=== PATIENT | female | born 1970 | race Caucasian/White ===

== ENCOUNTER 2019-08-23 11:02 | Day surgery (SDC) | payer MEDICAID ==
[2019-08-19 11:24] LABS: CLARITY,URINE CLEAR (Clear); COLOR,URINE YELLOW (Yellow); GLUCOSE, URINE NEGATIVE (Neg); KETONES,URINE NEGATIVE (Neg); LEUKOCYTE ESTERASE ,URINE NEGATIVE (Neg); NITRITES, URINE NEGATIVE (Neg); OCCULT BLOOD,URINE TRACE-INTACT (Neg); PROTEIN,URINE NEGATIVE (Neg); UROBILINOGEN,URINE 0.2 E.U/dL (0.2-1.0)
[2019-08-19 11:25] LABS: BASOPHILS # (AUTO) 0.1 X10'3 (0-0.2); BASOPHILS % (AUTO) 0.6 % (0-1); EOSINOPHILS # (AUTO) 0.4 X10'3 (0-0.9); EOSINOPHILS % (AUTO) 3.6 % (0-6); LYMPHOCYTES # (AUTO) 3.6 X10'3 (1.1-4.8); LYMPHOCYTES % (AUTO) 30.9 % (21-51); MEAN CORPUSCULAR HEMOGLOBIN 31.6 PG (27.0-31.0); MEAN CORPUSCULAR HGB CONC 34.6 g/dL (33.0-36.5); MEAN CORPUSCULAR VOLUME 91.4 FL (78-98); MEAN PLATELET VOLUME 10.9 FL (7.4-10.4); MONOCYTES # (AUTO) 0.7 X10'3 (0-0.9); MONOCYTES % (AUTO) 6.2 % (2-12); NEUTROPHILS # (AUTO) 6.8 X10'3 (1.8-7.7); NEUTROPHILS % (AUTO) 58.7 % (42-75); PRE OP HEMATOCRIT 46.2 % (35.0-45.0); PRE OP PLATELET COUNT 225 X10'3 (140-440); RED BLOOD COUNT 5.06 X10'6 (4.20-5.60); RED CELL DISTRIBUTION WIDTH 12.6 % (11.5-14.5)
[2019-08-19 11:27] LABS: UA COLLECTION TYPE NON-SPECIFIED
[2019-08-19 11:33] LABS: BACTERIA,URINE NONE SEEN /HPF (Neg); RBC,URINE 0-2 /HPF (0-2); SQUAMOUS EPITHELIAL CELL,UR FEW /LPF (FEW); WBC,URINE NONE SEEN /HPF (0-4)
[2019-08-19 11:34] LABS: MUCUS STRANDS NONE SEEN /LPF (Neg)
[2019-08-19 11:42] LABS: ALKALINE PHOSPHATASE 111 IU/L (46-116); BLOOD UREA NITROGEN 12 MG/DL (7-18); BUN/CREATININE RATIO 15.6 (6.6-38.0); CALCIUM 10.1 MG/DL (8.5-10.1); CHLORIDE 103 MMOL/L (99-107); CREATININE 0.77 MG/DL (0.40-0.90); PRE OP ALT 30 U/L (30-65); PRE OP ANION GAP 10 (8-16); PRE OP AST 18 U/L (10-37); PRE OP BILIRUB, TOTAL 0.3 MG/DL (0.0-1.0); PRE OP GLUCOSE 108 MG/DL (70-104); PRE OP POTASSIUM 3.7 MMOL/L (3.4-5.1); PRE OP SODIUM 143 MMOL/L (135-145); TOTAL CARBON DIOXIDE 30.3 MMOL/L (24-32); TOTAL PROTEIN 8.1 G/DL (6.4-8.2); eGFR 80 ML/MIN
[2019-08-19 12:34] LABS: LARGE PLATELETS FEW; PLATELET ESTIMATE NORMAL
[~2019-08-23] VITALS: Ht 154.9 cm; Wt 72.6 kg
[2019-08-23] VITALS (7 sets, daily range): BP systolic 118–151; BP diastolic 73–87
[~2019-08-23 11:02] MED LIST: ASPI-611 PO; CHOL200052 PO; DOCUMENT DATE & TIME OF BETA-BLOCKER PO ONE; HYDR25TA4 PO; LISI-604 PO; MAGN500C16 PO; METO-395 PO; NITR0.4T48 SL; SIMV40TA PO; cefazolin/dext.iso 2gm/100ml 100 ML IV ONE; clindamycin-Cleocin 900mg/D5W 50 ML IV ONE; famotidine 10mg tablet PO ONE; ringers solution, lacted 1,000 ML IV SCH
--- NOTE | 2019-08-23 16:28 | NUR ---
CONFIRMED ABX ORDERED WITH DR. SCOTT, PATIENT TO RECEIVE CLINDAMYCIN
[2019-08-23] MEDS ORDERED: sevoflurane 250ml liquid IH ONE (19:24)
[2019-08-23] MEDS ORDERED: fentaNYL/PF 50MCG/1 ML 2ML syringe ONE (19:26)
[2019-08-23] MEDS ORDERED: midazolam 2 mg/2 ml injection ONE (19:26)
[2019-08-23] MEDS ORDERED: propofol inj 20 ML IV ONE (19:28)
[2019-08-23] MEDS ORDERED: BUPIVAcaine/PF 2.5 mg/ml (0.25%) 30ml vial ONE (19:39)
[2019-08-23] MEDS ORDERED: BUPIVACAINE liposomal/PF 13.3 MG/ML vial IM ONE (19:39)
[2019-08-23] MEDS ORDERED: ringers solution, lacted 1,000 ML IV SCH (19:49)
[2019-08-23] MEDS ORDERED: ondansetron/PF 4mg/2ml inj IV PRN (19:50)
[2019-08-23] MEDS ORDERED: proCHLORperazine 10 MG/2 ml inj IV PRN (19:50)
[2019-08-23] MEDS ORDERED: morphine 4 MG/ML inj SYRINge IV PRN ×2 (19:50)
[2019-08-23] MEDS ORDERED: meperidine/PF 25mg/ml syringe IV PRN ×3 (19:50)
--- NOTE | 2019-08-23 20:25 | NUR ---
Received from OR via , accompanied by Anesthesiologist DR RODRIGUEZ and report given by Anesthesiolgist. PT IS AWAKE, REQUIRES ORENTING, SKIN WARM AND PINK, MOVING EXT X 4, NO C/O PAIN, VSS, PIV LEFT HAND 20G LR 100ML/HR.
--- NOTE | 2019-08-23 21:02 | NUR ---
PT UP TO THE RESTROOM TO VOID. STEADY GAIT.
--- NOTE | 2019-08-23 21:10 | NUR ---
PT HAS MET DISCHARGE CRITERIA, VSS, UP TO AMB INDEP'LY, VOIDED, NO C/O PAIN, DISCHARGE INSTRUCTIONS REVIEWED WITH PT AND , PIV REMOVED.
== END 2019-08-23 21:15 | disposition home or self-care (01) ==
LOC: PAS 11:02 → EDSEX 13:00 → PAS 21:15
PROVIDERS: ATTEND Surgery
DX: K64.2 Third degree hemorrhoids (principal); K64.4 Residual hemorrhoidal skin tags; I10 Essential (primary) hypertension; I25.10 Atherosclerotic heart disease of native coronary artery without angina pectoris; F17.210 Nicotine dependence, cigarettes, uncomplicated
CPT/HCPCS: 36415; 46947; 80053; 81001; 82948; 85025; 93005; A6224; C9290; J2250; J2704; J3010; J3490; J7120; A4215; A4618; A6449; A7000

== ENCOUNTER 2023-03-27 09:00 | Day surgery (SDC) | payer MEDICAID ==
[2023-03-19 14:11] LABS: BASOPHILS % (AUTO) 0.3 % (0-1); EOSINOPHILS # (AUTO) 0.6 X10'3 (0-0.9); EOSINOPHILS % (AUTO) 5.2 % (0-6); LYMPHOCYTES # (AUTO) 3.6 X10'3 (1.1-4.8); MEAN CORPUSCULAR HEMOGLOBIN 29.6 PG (27.0-31.0); MEAN CORPUSCULAR HGB CONC 33.4 g/dL (33.0-36.5); MEAN CORPUSCULAR VOLUME 88.6 FL (78-98); MEAN PLATELET VOLUME 10.5 FL (7.4-10.4); MONOCYTES % (AUTO) 8.4 % (2-12); NEUTROPHILS # (AUTO) 6.8 X10'3 (1.8-7.7); NEUTROPHILS % (AUTO) 56.1 % (42-75); PRE OP HEMATOCRIT 43.9 % (35.0-45.0); PRE OP HEMOGLOBIN 14.7 g/dL (12.0-16.0); PRE OP PLATELET COUNT 232 X10'3 (140-440); PRE OP WHITE BLOOD COUNT 12.1 10'3 (4.8-10.8); RED BLOOD COUNT 4.95 X10'6 (4.20-5.60); RED CELL DISTRIBUTION WIDTH 13.2 % (11.5-14.5)
[2023-03-19 14:20] LABS: ALBUMIN 3.6 G/DL (3.4-5.0); ALKALINE PHOSPHATASE 135 IU/L (46-116); BLOOD UREA NITROGEN 15 MG/DL (7-18); CALCIUM 10.1 MG/DL (8.5-10.1); CHLORIDE 104 MMOL/L (99-107); CREATININE 0.75 MG/DL (0.40-0.90); PRE OP ALT 25 U/L (30-65); PRE OP ANION GAP 4 (8-16); PRE OP AST 19 U/L (10-37); PRE OP BILIRUB, TOTAL 0.2 MG/DL (0.0-1.0); PRE OP GLUCOSE 127 MG/DL (70-104); PRE OP POTASSIUM 3.9 MMOL/L (3.4-5.1); PRE OP SODIUM 139 MMOL/L (135-145); TOTAL CARBON DIOXIDE 30.9 MMOL/L (24-32); TOTAL PROTEIN 7.3 G/DL (6.4-8.2); eGFR 81 ML/MIN
[2023-03-27] VITALS (9 sets, daily range): BP systolic 100–144; BP diastolic 74–91; PULSE 59–69; RESP 11–20; TEMP 98.1; O2SAT 90–95
[~2023-03-27] VITALS: Ht 149.9 cm; Wt 73.0 kg
[~2023-03-27 09:00] MED LIST changes: +AMLO5TAB16 PO; +BUPIVAcaine/PF 2.5 mg/ml (0.25%) 30ml vial ONE; -CHOL200052 PO; +CYCL5TAB PO; +EVOL140S2 SQ; -HYDR25TA4 PO; +HYDR50TA65; -LISI-604 PO; +LISI5TAB22 PO; +LORA10TA7 PO; -MAGN500C16 PO; +METF-517 PO; +MONT-40 PO; -NITR0.4T48 SL; +OMEP40CA21 PO; +PRAZ5CAP2 PO; +PREG50CA64 PO; +ROSU20TA73 PO; +SERT-434 PO; -SIMV40TA PO; -cefazolin/dext.iso 2gm/100ml 100 ML IV ONE; +clindamycin 600mg/D5W 50ml 50 ML IV ONE; -clindamycin-Cleocin 900mg/D5W 50 ML IV ONE; -famotidine 10mg tablet PO ONE; +famotidine 20mg tablet PO ONE
[2023-03-27] MEDS ORDERED: morphine 2 MG/ML inj. syringe IV PRN (11:20)
[2023-03-27] MEDS ORDERED: morphine 4 MG/ML inj SYRINge IV PRN (11:20)
[2023-03-27] MEDS ORDERED: ringers solution, lacted 1,000 ML IV SCH (11:20)
[2023-03-27] MEDS ORDERED: ondansetron/PF 4mg/2ml inj IV PRN (11:20)
[2023-03-27] MEDS ORDERED: meperidine/PF 25mg/ml syringe IV PRN ×3 (11:20)
[2023-03-27] MEDS ORDERED: proCHLORperazine 10 MG/2 ml inj IV PRN (11:20)
[2023-03-27] MEDS ORDERED: fentaNYL/PF 50MCG/1 ML 2ML syringe ONE ×2 (13:02→13:40)
[2023-03-27] MEDS ORDERED: MIDAZolam 1 MG/ML 5ML VIAL ONE (13:10)
[2023-03-27] MEDS ORDERED: ketamine 50 mg/ml 10ml vial ONE (13:31)
[2023-03-27] MEDS ORDERED: propofol inj 20 ML IV ONE (13:55)
--- NOTE | 2023-03-27 13:58 | NUR ---
Received from OR via [facility], accompanied by Anesthesiologist DR MARTINEZ and report given by Anesthesiologist AND DIRECTOR OF DIGITAL TECHNOLOGY. PT DROWSY, DENIES PAIN. RIGHT HAND/WRIST TO MID FOREARM W/BIAS DRSG COVERING INCISION/DRSG/SPLINT CDI. FINGERS PWD, PULMONOLOGY TECHNICIAN 1-2 SECONDS. Addendum: 03/27/23 at 1431 by Maribel Clark RN Amended: Links added.
--- NOTE | 2023-03-27 14:58 | NUR ---
PT UP AND ABLE TO AMBULATE SAFELY, D/C INSTRUCTIONS GIVEN AND GONE OVER W/PT WHO VERBALIZED UNDERSTANDING. PT D/CD TO HOME VIA W/C TO PRIVATE VEHICLE W/O INCIDENT. Addendum: 03/27/23 at 1516 by Maribel Clark RN Amended: Links added.
== END 2023-03-27 14:58 | disposition home or self-care (01) ==
LOC: PAS 09:00
PROVIDERS: ATTEND Orthopaedic Surgery Hand Surgery
DX: G56.01 Carpal tunnel syndrome, right upper limb (principal); G56.21 Lesion of ulnar nerve, right upper limb; M65.321 Trigger finger, right index finger; S63.591A Other specified sprain of right wrist, initial encounter; M25.531 Pain in right wrist; M89.8X3 Other specified disorders of bone, forearm; M17.12 Unilateral primary osteoarthritis, left knee; I10 Essential (primary) hypertension; I25.2 Old myocardial infarction; E11.9 Type 2 diabetes mellitus without complications; F43.10 Post-traumatic stress disorder, unspecified; F41.9 Anxiety disorder, unspecified; E21.3 Hyperparathyroidism, unspecified; Z95.5 Presence of coronary angioplasty implant and graft; Z87.442 Personal history of urinary calculi; Z88.1 Allergy status to other antibiotic agents; Z88.8 Allergy status to other drugs, medicaments and biological substances; Z88.0 Allergy status to penicillin; Z79.82 Long term (current) use of aspirin; Z79.899 Other long term (current) drug therapy; Z90.710 Acquired absence of both cervix and uterus; Z98.890 Other specified postprocedural states; Z87.891 Personal history of nicotine dependence; Z83.3 Family history of diabetes mellitus; Z82.49 Family history of ischemic heart disease and other diseases of the circulatory system; X58.XXXA Exposure to other specified factors, initial encounter; Y93.89 Activity, other specified; Y92.89 Other specified places as the place of occurrence of the external cause; Y99.8 Other external cause status
CPT/HCPCS: 26055; 29846; 36415; 64718; 64721; 64772; 80053; 82948; 85025; 93005; J2250; J2704; J3010; J3490; J7030; J7120; Z7506; Z7512; A4215; A4618; A7000